=== PATIENT | female | born 1975 | race Two or more races ===

== ENCOUNTER 2019-03-11 02:02 | Emergency (ER) | payer SELFPAY ==
[~2019-03-11] VITALS: Ht 152.4 cm; Wt 86.2 kg
[2019-03-11 02:17] VITALS: BP 120/54
[2019-03-11] MEDS ORDERED: ACETAMINOPHEN 500 MG TAB PO ONE (04:30)
[2019-03-11] MEDS ORDERED: IBUPROFEN 800 MG TAB PO ONE (04:30)
== END 2019-03-11 04:57 | disposition home or self-care (01) ==
LOC: ER 02:05
DX: S09.90XA Unspecified injury of head, initial encounter (principal); M25.511 Pain in right shoulder; M54.5 Low back pain; M62.838 Other muscle spasm; W19.XXXA Unspecified fall, initial encounter; Y93.89 Activity, other specified; Y99.8 Other external cause status; Y92.89 Other specified places as the place of occurrence of the external cause
CPT/HCPCS: 70450; 72125; 72131